=== PATIENT | male | born 1990 | race Caucasian/White ===

== ENCOUNTER 2024-09-11 10:07 | Emergency (ER) | payer OTHER, SELFPAY ==
[2024-09-11 10:22] VITALS: BP 123/77; PULSE 74; RESP 16; TEMP 36.5; O2SAT 100
--- NOTE | 2024-09-11 10:51 | ED_ITS ---
HPI - Nausea/Vomiting/Diarrhea General Chief complaint: Nausea/Vomiting/Diarrhea Stated complaint: Flu Like Time Seen by Provider: 09/11/24 10:51 Source: patient Mode of arrival: ambulatory Limitations: no limitations History of Present Illness HPI Narrative: 34-year-old male presents with complaint of upset stomach, diarrhea for 5 days. Missed several days of work due to diarrhea. Requesting work note. Patient states that symptoms are improving. Continues to have a few soft stools but no abdominal cramping. Drinking plenty of water to hydrate. All systems reviewed and negative except as noted above. Related Data Home Medications ?Medication ?Instructions ?Recorded ?Confirmed ?Last Taken ?Type No Home Medications 09/11/24 09/11/24 Unknown History Allergies Allergy/AdvReac Type Severity Reaction Status Date / Time No Known Allergies Allergy Verified 09/11/24 10:32 Review of Systems Review of Systems: CONSTITUTIONAL: Denies fever, chills, or sweats. EYES: Denies visual changes, redness, or discharge. ENT: Denies rhinorrhea, congestion, sore throat, or otalgia. CARDIOVASCULAR: Denies chest pain, palpitations, or edema. RESPIRATORY: Denies cough or dyspnea. GASTROINTESTINAL: Denies abdominal pain, nausea, vomiting . Reports diarrhea. GENITOURINARY: Denies dysuria or hematuria. SKIN: Denies rash or itching. MUSCULOSKELETAL: Denies back pain, joint pain, or myalgia. NEUROLOGIC: Denies headache, numbness, or weakness. PSYCHIATRIC: Denies anxiety or depression. All other systems reviewed are negative, except as documented in HPI. PMFSH Comments At time of signature, agree with nursing past medical, surgical, social and family history. There is no relevant family history pertinent to the presenting complaint. Exam Narrative: GENERAL: This is a well-nourished, well-developed patient, in no apparent distress. HEAD: normocephalic, atraumatic. EYES: PERRL. Sclera clear/white. Vision is grossly intact. EARS: External ears normal NOSE: External nose normal NECK: Neck supple, non-tender without lymphadenopathy, masses or thyromegaly. CARDIOVASCULAR: Regular rate and rhythm without murmurs, gallops, or rubs. RESPIRATORY: Clear to auscultation. Breath sounds equal bilaterally. No wheezes, rales, or rhonchi. GASTROINTESTINAL: Abdomen soft, non-tender, nondistended. Bowel sounds are hyperactive. No hepato-splenomegaly, or palpable masses. No guarding. SKIN: warm, Dry, intact with no suspicious lesions or rash, good texture and turgor. NEURO: awake, alert, and oriented to person, place and time. There were no obvious focal neurologic abnormalities. EXTREMITIES: No joint tenderness, effusion, or edema noted. Course Course Level of Care: Express Care Visit Vital Signs Vital signs: Vital Signs Temperature 36.5 C 09/11/24 10:22 Pulse Rate 74 09/11/24 10:22 Respiratory Rate 16 09/11/24 10:22 Blood Pressure 123/77 09/11/24 10:22 Pulse Oximetry 100 09/11/24 10:22 Oxygen Delivery Room Air 09/11/24 10:22 Temperature 36.5 C 09/11/24 10:22 Pulse Rate 74 09/11/24 10:22 Respiratory Rate 16 09/11/24 10:22 Blood Pressure 123/77 09/11/24 10:22 Pulse Oximetry 100 09/11/24 10:22 Oxygen Delivery Room Air 09/11/24 10:22 reviewed MDM - Nausea/Vomiting/Diarrhea MDM Narrative Medical decision making narrative: patient is well-appearing, nontoxic. No abdominal tenderness on exam. Patient is here for work excuse. Please be advised this is a medical document. It is intended for [id number] communication. It is written in medical language and may contain unfamiliar abbreviations or verbiage. Medical documents are intended to carry relevant information, facts as evident, and the clinical opinion of the practitioner at the time of the encounter. This report may have been done utilizing a voice recognition system. Attempts have been made to correct errors. However, there may be uncorrected grammatical, spelling, and recognition errors present. The file time of this note does not necessarily represent the time of service. Differential Diagnosis Differential diagnosis: Likely gastroenteritis Discharge Plan Discharge Clinical Impression: Encounter to obtain excuse from work Diarrhea Qualifiers: Diarrhea type: unspecified type Qualified Code(s): R19.7 - Diarrhea, unspecified Patient Disposition: Home Condition: Stable Instructions: Acute Diarrhea (ED) Additional Instructions: Drink at least 64 ounces of water a day. See your doctor if symptoms not improving. If you have severe abdominal pain go to the ER. Patient Language: Portuguese Prescriptions: No Action No Home Medications Follow-up/Referrals: PHYSICIAN,[employer] [Primary Care Provider] - Guillaume Espana MD [Physician] - ( Establish care with a primary care physician) Stand Alone Forms: Work/School Release IP Time of Disposition: 10:58
--- OUTSIDE RECORDS SUMMARY | 2024-09-11 11:26 | XMS_ITS | Clinical Summary ---
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 Role Phone Yue Campos PA-C Primary Care Provider [phone] Allergies No known active allergies Medications methylPREDNISol one YOLA, (MEDROL DOSEPAK) 4 MG tablet 6 TABLETS ON DAY ONE, 5 TABLETS DAY TWO, 4 TABLETS DAY THREE, 3 TABLETS DAY FOUR, 2 TABLETS DAY FIVE, AND 1 TABLET DAY SIX 1 each 03/27/2022 Active Social History Tobacco Use Types Packs/Day Years Used Date Smoking Tobacco: Never Assessed Sex and Gender Information Value Date Recorded Sex Assigned at Not on file Legal Sex Male 4:50 PM CDT Gender Identity Not on file Sexual Orientation Not on file Last Filed Vital Signs Vital Sign Reading Time Taken Comments Blood Pressure 129/72 03/27/2022 9:38 AM [employer] Pulse 106 03/27/2022 9:38 AM [employer] Temperature 36.6 C (97.9 F) 03/27/2022 9:38 AM [employer] Respiratory Rate 18 03/27/2022 9:38 AM [employer] Oxygen Saturation 97% 03/27/2022 9:38 AM [employer] Inhaled Oxygen Concentration - - Weight 79.4 kg (175 lb) 03/27/2022 9:38 AM [employer] Height 175.3 cm (5' 9 ) 03/27/2022 9:38 AM [employer] Body Mass Index 25.84 03/27/2022 9:38 AM [employer] Plan of Treatment Health Maintenance Due Date Last Done Comments Annual Physical 1994 Hepatitis C 2009 DTaP, Tdap and Td Vaccines ( 1 - Tdap) 2010 Hepatitis B Vaccines (1 of 3 - 19+ 3-dose series) 2010 COVID-19 Vaccine (3 - 2023-2 5 season) 2024 09/03/2020, 08/13/2020 HPV Vaccines Aged Out No longer eligi ble based on patient's age to complete this topic Meningococcal B Vaccine Aged Out No l onger eligible based on patient's age to complete this topic Meningococcal Vaccine Aged Out No ayad juve eligible based on patient's age to complete this topic Pneumococcal Vaccine: Pediatrics (0 to 5 Years) and At-Risk Patients (6 to 49 Years) Aged Out No longer eligible b ased on patient's age to complete this topic RSV Immunizations Under 20 Months Aged Out No longer eligible b ased on patient's age to complete this topic Insurance Care Teams 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
== END 2024-09-11 10:59 | disposition home or self-care (01) ==
PROVIDERS: Emergency Provider Nurse Practitioner Family
DX: Z02.79 Encounter for issue of other medical certificate (principal); R19.7 Diarrhea, unspecified; Z86.16 Personal history of COVID-19
CPT/HCPCS: 99211; G0463